=== PATIENT | male | born 1955 ===

== ENCOUNTER 2016-08-10 15:37 | Inpatient (IN) ==
[2016-08-10] MEDS ORDERED: LORazepam 2 MG/1 ML VIAL IV PRN ×2 (15:44→17:54)
[2016-08-10] MEDS ORDERED: MAGNESIUM SULF RIDER 4 GM in PREMIX 1 EACH IV ONE (18:05)
--- NOTE | 2016-08-10 18:07 | Hospitalist History & Physical ---
Assessment and Plan (1) Delirium tremens Status: Acute Assessment and plan: The patient is admitted to intensive care unit for benzodiazepine sedation, supportive care, and close observation. We will also give Geodon to reduce agitation and promote cooperative behavior. The patient will be hydrated and we will replete potassium and magnesium. We will recheck electrolytes in the morning. Current Visit: Yes (2) Hypertension Status: Acute Current Visit: Yes Qualifiers: Hypertension type: essential hypertension Qualified Code(s): I10 - Essential (primary) hypertension History of Present Illness Chief complaint: Tremulousness and altered mental status History of present illness: Mr. Bobo is a 61 year old male with history of daily beer drinking. The patient was seen at [place] emergency room on the day prior to admission to the hospital due to weakness. The patient was found to be hyponatremic. The patient was tremulous at that time but did not wish to be hospitalized. The patient returned to [facility] with symptoms of delirium today and is now transferred to [place] emergency room for further treatment of delirium tremens. The patient has no fever, chills. The patient does not complain of chest pain or palpitations. The patient is awake and combative the patient will answer questions with short answers. The patient is moving all extremities well and does not appear to have blindness. The patient's symptoms of delirium are moderate, continuous, and worsening. The patient is now admitted for IV hydration and benzodiazepine sedation. Allergies Allergy/AdvReac Type Severity Reaction Status Date / Time No Known Allergies Allergy Verified 08/10/16 18:36 Medical,Surgical,& Family Hx - Medical History Cardio: History of: Hypertension - Family History Family History: Reports;: Family Diabetes, Family Hypertension - Social History Frequency of Alcohol Use: Frequently Marital Status: Single Lives With:: Parent Functional capacity: independent ambulation 12 point system: reviewed and no additional remarkable complaints except as stated Exam - Constitutional Exam: Constitutional System: Moderate distress. Moderate tremulousness. The patient is delirious but will interact with observer Head: Normocephalic, atraumatic. Ears, Nose and Throat System: No evidence of Otitis or Mastoiditis. No epistaxis or discharge Eyes System: Pupils equal, round, and reactive. Extraocular muscles intact. Neck: Supple, without adenopathy, No jugular venous distention. No thyromegaly , neck mass, or prior surgery apparent. Respiratory System: Chest clear to auscultation. Cardiovascular System: Heart with regular tachycardic rate and rhythm. No murmur. GI System: Abdomen soft, nontender. Normo active bowel sounds present. Musculoskeletal System: limbs with no pedal edema. Full distal pulses. Neurological System: No discernable sensory deficit. No aphasia Psychiatric System: The patient is delirious Results - Labs Lab Results: I have reviewed the past 24 hour labs Labs: Laboratory obtained at [facility] includes sodium 121 potassium 3.3 chloride 81 CO2 of 25 BUN 14 creatinine 1.2
[2016-08-10] MEDS: chlordiazePOXIDE 25 MG CAPSULE PO SCH ×3 (19:28→20:44)
[2016-08-10] MEDS: SODIUM CHLORIDE 0.9% 1,000 ML IV SCH (19:29)
[2016-08-10] MEDS: ZIPRASIDONE 20 MG/1 ML VIAL IM PRN (19:30)
[2016-08-10] MEDS: THIAMINE INJ 100 MG, FOLIC ACID INJ 1 MG, MULTIVITAMIN INJ 10 ML in SODIUM CHLORIDE 0.9... IV SCH (20:45)
[2016-08-11] MEDS: chlordiazePOXIDE 25 MG CAPSULE PO SCH ×6 (00:26→19:59)
[2016-08-11] MEDS: ZIPRASIDONE 20 MG/1 ML VIAL IM PRN ×2 (01:57→22:43)
[2016-08-11 05:33] LABS: Basophils # 0.1 10*3/uL (0.0-0.2); Basophils % 0.9 % (0.0-0.8); Eosinophils # 0.2 10*3/uL (0.0-0.87); Hematocrit 37.3 VOL% (42.0-52.0); Hemoglobin 13.1 GM/DL (14.0-18.0); Immature Granulocytes % 0.5 %; Immature Granulocytes Absolute 0.04 #; Lymphocytes % 12.6 % (21.2-54.2); Mean Corpuscular HGB Conc 35.1 GM/DL (32-36); Mean Corpuscular Hemoglobin 31 PG (27-34); Mean Corpuscular Volume 87.6 FL (87-102); Mean Platelet Volume 9.6 FL (9.6-12.0); Monocytes # 1.5 10*3/uL (0.11-0.8); Monocytes % 19.3 % (1.7-12.7); Neutrophils # 5.1 10*3/uL (1.4-7.4); Neutrophils % 64.7 % (38.7-73.9); Platelet Count 119 T/CUMM (130-400); Red Blood Count 4.26 MC/CUMM (3.8-5.5); Red Cell Distribution Width 14.3 % (9.3-17.3); White Blood Count 7.9 T/CUMM (4-12)
[2016-08-11 05:44] LABS: INR 1.1; PT Patient Result 11.6 SECS; Partial Thromboplastin Time 27.1 SECS (0-40)
[2016-08-11 06:04] LABS: Band Neutrophils 1 % (0-10); Eosinophils 1 % (0-10); Lymphocytes 8 % (20-55); Segmented Neutrophils 73 % (50-85); Total Cells Counted 100
[2016-08-11 06:05] LABS: Burr Cells Slight; Hypochromasia 1+; Platelet Estimate Decreased
[2016-08-11 06:06] LABS: Ovalocytes Few
[2016-08-11 06:14] LABS: Troponin I Only 0.018 NG/ML (0.00-0.045)
[2016-08-11 06:15] LABS: Lactic Acid 1.1 MMOL/L (0.4-2.0)
[2016-08-11 06:28] LABS: Folate > 24.0 NG/ML (5.4-24.0); Vitamin B12 773 PG/ML (211-911)
[2016-08-11 06:45] LABS: Albumin 3.2 G/DL (3.4-5.0); Bilirubin,Total 1.3 MG/DL (0.2-1.0); Calcium 8.2 MG/DL (8.5-10.1); Osmolality,Calculated 271.8 MOS/KG (273-304); Potassium 3.7 MMOL/L (3.5-5.1); Total Protein 7.2 G/DL (6.4-8.3)
[2016-08-11] MEDS: SODIUM CHLORIDE 0.9% 1,000 ML IV SCH (08:00)
[2016-08-11] MEDS: LISINOPRIL 10 MG TABLET PO SCH (11:12)
--- NOTE | 2016-08-11 12:59 | Hospitalist Progress Note ---
Assessment and Plan (1) Delirium tremens Status: Acute Assessment and plan: The patient is admitted to intensive care unit for benzodiazepine sedation, supportive care, and close observation. The patient has improved and is now ready for transfer to the floor and continue oral benzodiazepine sedation. I anticipate discharge home tomorrow on the following day. Current Visit: Yes (2) Hypertension Status: Acute Current Visit: Yes Qualifiers: Hypertension type: essential hypertension Qualified Code(s): I10 - Essential (primary) hypertension Hospitalist: Subjective Interval history: The patient is now awake and alert. The patient does not complain of shortness of breath or chest pain. His conversation is rational. 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 The patient quit drinking his daily beer several days ago and had alcohol withdrawal delirium tremens. This is now improved on benzodiazepine sedation and the patient is hemodynamically stable and ready for transfer to the floor. Exam - Constitutional Vitals: Period Temp Pulse Resp BP Sys/Snow Pulse Ox Last 24 Hr 59 F-98.9 F 81-104 18-29 114-175/75-125 94-99 Exam: Constitutional System: No distress. Minimal tremulousness. The patient is alert and oriented Head: Normocephalic, atraumatic. Ears, Nose and Throat System: No evidence of Otitis or Mastoiditis. No epistaxis or discharge Eyes System: Pupils equal, round, and reactive. Extraocular muscles intact. Neck: Supple, without adenopathy, No jugular venous distention. No thyromegaly , neck mass, or prior surgery apparent. Respiratory System: Chest clear to auscultation. Cardiovascular System: Heart with regular tachycardic rate and rhythm. No murmur. GI System: Abdomen soft, nontender. Normo active bowel sounds present. Musculoskeletal System: limbs with no pedal edema. Full distal pulses. Neurological System: No discernable sensory deficit. No aphasia Psychiatric System: The patient is oriented in 4 respects Results - Labs CBC & BMP: 08/11/16 04:33 08/11/16 04:33 Lab Results: I have reviewed the past 24 hour labs
[2016-08-11] MEDS: THIAMINE INJ 100 MG, FOLIC ACID INJ 1 MG, MULTIVITAMIN INJ 10 ML in SODIUM CHLORIDE 0.9... IV SCH (19:59)
[2016-08-11] MEDS: DORZOLAMIDE/TIMOLOL OPH SOLN 10 ML BOTTLE RIGHT EYE SCH (20:31)
[2016-08-11] MEDS: ATROPINE 1 % OPH SOLN 5 ML BOTTLE RIGHT EYE SCH (20:31)
[2016-08-12] MEDS: chlordiazePOXIDE 25 MG CAPSULE PO SCH ×6 (00:21→22:47)
[2016-08-12 05:58] LABS: Magnesium 1.9 MG/DL (1.8-2.4); Osmolality,Calculated 274.5 MOS/KG (273-304); Potassium 3.4 MMOL/L (3.5-5.1)
[2016-08-12] MEDS: SODIUM CHLORIDE 0.9% 1,000 ML IV SCH ×3 (06:25→19:19)
[2016-08-12] MEDS: hydroCHLOROthiazide 12.5 MG CAPSULE PO SCH (08:59)
[2016-08-12] MEDS: LISINOPRIL 10 MG TABLET PO SCH (08:59)
[2016-08-12] MEDS: ATROPINE 1 % OPH SOLN 5 ML BOTTLE RIGHT EYE SCH ×2 (09:01→22:03)
[2016-08-12] MEDS: DORZOLAMIDE/TIMOLOL OPH SOLN 10 ML BOTTLE RIGHT EYE SCH ×2 (09:01→22:01)
--- NOTE | 2016-08-12 15:28 | Hospitalist Progress Note ---
Assessment and Plan (1) Delirium tremens Status: Acute Assessment and plan: Will space out librium Possible discharge soon Current Visit: Yes (2) Hypertension Status: Acute Assessment and plan: Continue home meds Current Visit: Yes Qualifiers: Hypertension type: essential hypertension Qualified Code(s): I10 - Essential (primary) hypertension Hospitalist: Subjective Interval history: Overnight, patient with some confusion. Today patient is oriented but reports a tremor. Exam - Constitutional Vitals: Period Temp Pulse Resp BP Sys/Snow Pulse Ox Last 24 Hr 98 F-99.9 F 84-96 20-24 124-158/63-93 94-99 General appearance: over weight - Head Head exam: Present: normocephalic, atraumatic - Eye Eye exam: Present: EOMI Pupils: Present: DERREK - ENT ENT exam: Present: normal exam - Neck Neck exam: Present: normal inspection - Respiratory Respiratory exam: Present: clear to auscultation bilaterally. Absent: wheezes - Cardiovascular Cardiovascular exam: Present: regular rate and rhythm - GI/Abdominal GI/Abdominal exam: Present: normal bowel sounds, soft. Absent: tenderness, rebound - Extremities Exam Extremities exam: Present: normal inspection - Back Exam Back exam: Present: normal inspection - Neurological Exam Neurological exam: Present: alert, oriented X3 - Psychiatric Psychiatric exam: Present: normal affect, normal mood - Skin Skin exam: Present: warm, intact Results - Labs CBC & BMP: 08/11/16 04:33 08/12/16 04:46
[2016-08-12] MEDS: THIAMINE INJ 100 MG, FOLIC ACID INJ 1 MG, MULTIVITAMIN INJ 10 ML in SODIUM CHLORIDE 0.9... IV SCH (19:20)
[2016-08-12] MEDS: ZIPRASIDONE 20 MG/1 ML VIAL IM PRN (23:06)
[2016-08-13] MEDS: ATROPINE 1 % OPH SOLN 5 ML BOTTLE RIGHT EYE SCH ×2 (07:59→20:22)
[2016-08-13] MEDS: chlordiazePOXIDE 25 MG CAPSULE PO SCH ×2 (07:59→15:37)
[2016-08-13] MEDS: hydroCHLOROthiazide 12.5 MG CAPSULE PO SCH (07:59)
[2016-08-13] MEDS: LISINOPRIL 10 MG TABLET PO SCH (07:59)
[2016-08-13] MEDS: DORZOLAMIDE/TIMOLOL OPH SOLN 10 ML BOTTLE RIGHT EYE SCH ×2 (07:59→20:22)
--- NOTE | 2016-08-13 14:16 | Hospitalist Progress Note ---
Assessment and Plan (1) Delirium tremens Status: Acute Assessment and plan: Will space out librium Possible discharge soon Current Visit: Yes (2) Hypertension Status: Acute Assessment and plan: Continue home meds Current Visit: Yes Qualifiers: Hypertension type: essential hypertension Qualified Code(s): I10 - Essential (primary) hypertension Hospitalist: Subjective Interval history: Still with some intermittent confusion. His family called and believe that he needs rehab therapy before going home. Exam - Constitutional Vitals: Period Temp Pulse Resp BP Sys/Snow Pulse Ox Last 24 Hr 98.0 F-98.9 F 82-100 16-20 136-151/59-97 92-98 General appearance: over weight - Head Head exam: Present: normocephalic, atraumatic - Eye Eye exam: Present: EOMI Pupils: Present: DERREK - ENT ENT exam: Present: normal exam - Neck Neck exam: Present: normal inspection - Respiratory Respiratory exam: Present: clear to auscultation bilaterally. Absent: wheezes - Cardiovascular Cardiovascular exam: Present: regular rate and rhythm - GI/Abdominal GI/Abdominal exam: Present: normal bowel sounds, soft. Absent: tenderness, rebound - Extremities Exam Extremities exam: Present: normal inspection - Back Exam Back exam: Present: normal inspection - Neurological Exam Neurological exam: Present: alert, oriented X3 - Psychiatric Psychiatric exam: Present: normal affect, normal mood - Skin Skin exam: Present: warm, intact Results - Labs CBC & BMP: 08/11/16 04:33 08/12/16 04:46
[2016-08-13] MEDS: SODIUM CHLORIDE 0.9% 1,000 ML IV SCH (18:24)
[2016-08-13] MEDS: THIAMINE INJ 100 MG, FOLIC ACID INJ 1 MG, MULTIVITAMIN INJ 10 ML in SODIUM CHLORIDE 0.9... IV SCH (20:21)
[2016-08-14] MEDS: chlordiazePOXIDE 25 MG CAPSULE PO SCH ×3 (00:53→13:01)
[2016-08-14] MEDS: hydroCHLOROthiazide 12.5 MG CAPSULE PO SCH (08:08)
[2016-08-14] MEDS: LISINOPRIL 10 MG TABLET PO SCH (08:08)
[2016-08-14] MEDS: DORZOLAMIDE/TIMOLOL OPH SOLN 10 ML BOTTLE RIGHT EYE SCH ×2 (08:09→20:56)
[2016-08-14] MEDS: ATROPINE 1 % OPH SOLN 5 ML BOTTLE RIGHT EYE SCH ×2 (08:09→20:53)
[2016-08-14] MEDS: SODIUM CHLORIDE 0.9% 1,000 ML IV SCH ×2 (10:22→14:53)
--- NOTE | 2016-08-14 10:37 | Hospitalist Progress Note ---
Assessment and Plan (1) Delirium tremens Status: Acute Assessment and plan: Will space out librium Possible discharge soon Current Visit: Yes (2) Hypertension Status: Acute Assessment and plan: Continue home meds Current Visit: Yes Qualifiers: Hypertension type: essential hypertension Qualified Code(s): I10 - Essential (primary) hypertension Hospitalist: Subjective Interval history: No acute events overnight. Exam - Constitutional Vitals: Period Temp Pulse Resp BP Sys/Snow Pulse Ox Last 24 Hr 98.2 F-98.8 F 75-134 20-21 114-136/65-87 92-96 General appearance: over weight - Head Head exam: Present: normocephalic, atraumatic - Eye Eye exam: Present: EOMI Pupils: Present: DERREK - ENT ENT exam: Present: normal exam - Neck Neck exam: Present: normal inspection - Respiratory Respiratory exam: Present: clear to auscultation bilaterally - Cardiovascular Cardiovascular exam: Present: regular rate and rhythm - GI/Abdominal GI/Abdominal exam: Present: normal bowel sounds, soft. Absent: tenderness, rebound - Extremities Exam Extremities exam: Present: normal inspection - Back Exam Back exam: Present: normal inspection - Neurological Exam Neurological exam: Present: alert, oriented X3 - Psychiatric Psychiatric exam: Present: normal affect, normal mood - Skin Skin exam: Present: warm, intact Results - Labs CBC & BMP: 08/11/16 04:33 08/12/16 04:46
[2016-08-14] MEDS: THIAMINE INJ 100 MG, FOLIC ACID INJ 1 MG, MULTIVITAMIN INJ 10 ML in SODIUM CHLORIDE 0.9... IV SCH (20:52)
[2016-08-15] MEDS: chlordiazePOXIDE 25 MG CAPSULE PO SCH ×3 (00:14→23:20)
[2016-08-15] MEDS: SODIUM CHLORIDE 0.9% 1,000 ML IV SCH ×3 (06:32→14:41)
[2016-08-15] MEDS: hydroCHLOROthiazide 12.5 MG CAPSULE PO SCH (08:54)
[2016-08-15] MEDS: LISINOPRIL 10 MG TABLET PO SCH (08:55)
[2016-08-15] MEDS: DORZOLAMIDE/TIMOLOL OPH SOLN 10 ML BOTTLE RIGHT EYE SCH ×2 (08:55→21:19)
[2016-08-15] MEDS: ATROPINE 1 % OPH SOLN 5 ML BOTTLE RIGHT EYE SCH ×2 (08:55→21:18)
--- NOTE | 2016-08-15 13:01 | Hospitalist Progress Note ---
Assessment and Plan (1) Delirium tremens Status: Acute Assessment and plan: Will continue librium Possible discharge tomorrow Current Visit: Yes (2) Hypertension Status: Acute Assessment and plan: Continue home meds Current Visit: Yes Qualifiers: Hypertension type: essential hypertension Qualified Code(s): I10 - Essential (primary) hypertension Hospitalist: Subjective Interval history: No acute events overnight. Patient getting around better now. Appears to be less confused today. Will plan for discharge tomorrow with referral to [facility]. Exam - Constitutional Vitals: Period Temp Pulse Resp BP Sys/Snow Pulse Ox Last 24 Hr 97.3 F-98.6 F 63-83 18-21 83-157/55-95 94-96 General appearance: over weight - Head Head exam: Present: normocephalic, atraumatic - Eye Eye exam: Present: EOMI Pupils: Present: DERREK - ENT ENT exam: Present: normal exam - Neck Neck exam: Present: normal inspection - Respiratory Respiratory exam: Present: clear to auscultation bilaterally. Absent: rhonchi, wheezes - Cardiovascular Cardiovascular exam: Present: regular rate and rhythm - GI/Abdominal GI/Abdominal exam: Present: normal bowel sounds, soft. Absent: tenderness, rebound - Extremities Exam Extremities exam: Present: normal inspection - Back Exam Back exam: Present: normal inspection - Neurological Exam Neurological exam: Present: alert, oriented X3 - Psychiatric Psychiatric exam: Present: normal affect, normal mood - Skin Skin exam: Present: warm, intact Results - Labs CBC & BMP: 08/11/16 04:33 08/12/16 04:46
[2016-08-15] MEDS: THIAMINE INJ 100 MG, FOLIC ACID INJ 1 MG, MULTIVITAMIN INJ 10 ML in SODIUM CHLORIDE 0.9... IV SCH (21:19)
[2016-08-16] MEDS: SODIUM CHLORIDE 0.9% 1,000 ML IV SCH (07:37)
[2016-08-16 08:14] VITALS: BP 143/86
[2016-08-16] MEDS: ATROPINE 1 % OPH SOLN 5 ML BOTTLE RIGHT EYE SCH (08:47)
[2016-08-16] MEDS: DORZOLAMIDE/TIMOLOL OPH SOLN 10 ML BOTTLE RIGHT EYE SCH (08:47)
[2016-08-16] MEDS: hydroCHLOROthiazide 12.5 MG CAPSULE PO SCH (08:47)
[2016-08-16] MEDS: LISINOPRIL 10 MG TABLET PO SCH (08:47)
--- NOTE | 2016-08-16 10:02 | Discharge Summary ---
Hospital Course - Hospital Course Hospital Course: Mr. Bobo is a 61 year old male with history of daily beer drinking. The patient was seen at [place] emergency room on the day prior to admission to the hospital due to weakness. The patient was found to be hyponatremic. The patient was tremulous at that time but did not wish to be hospitalized. The patient returned to [facility] with symptoms of delirium and is was transferred to [place] emergency room for further treatment of delirium tremens. The patient was awake and combative the patient will answer questions with short answers. The patient's symptoms of delirium are moderate, continuous , and worsening. The patient was admitted to the hospitalist service for IV hydration and benzodiazepine sedation. He was initially monitored in the ICU. The following day he was transferred to the general medicine floor. He was tapered on benzodiazepines. His hospital course was complicated by intermittent confusion due to alcohol withdrawal. He is now alert and oriented, able to walk around the [place] with the assistance of a cane. He has now reached maximal benefit of inpatient stay and will be discharged home. - Time spent with patient Time with patient DS: Less than 30 minutes Diagnosis - Discharge Diagnosis (1) Delirium tremens Status: Resolved (2) Hypertension Status: Chronic Discharge Plan - Discharge Data Disposition: Disch To Home/Self Care Condition at Discharge: Stable Discharge Diet: advance to your usual diet Activity: increase activity as tolerated Hygiene: no restrictions Weight Bearing at Discharge: weight bear as tolerated Driving: not until seen by doctor Contact your physician if you experience:: fever over 101, Shortness of breath - Discharge Medications New Folic Acid Tab 1 mg PO DAILY #30 tablet Thiamine Tab [Vitamin B1 Tab] 100 mg PO DAILY #30 tablet chlordiazePOXIDE [Librium] 25 mg PO Q12H #15 capsule Continue Atropine 1 % Oph Soln [Isopto Atropine 1%] 1 drop RIGHT EYE BID Lisinopril 10 mg PO DAILY Dorzolamide/Timolol Oph Soln [Cosopt] 1 drop RIGHT EYE BID hydroCHLOROthiazide [Hydrochlorothiazide] 12.5 mg PO DAILY - Follow Up or Referral - Forms/Instructions Exam - Constitutional Vitals: Period Temp Pulse Resp BP Sys/Snow Pulse Ox Last 24 Hr 96.9 F-98.5 F 65-83 18-65 83-143/55-86 95-98 General appearance: over weight - Head Head exam: Present: normocephalic, atraumatic - Eye Eye exam: Present: EOMI Pupils: Present: DERREK - ENT ENT exam: Present: normal exam - Neck Neck exam: Present: normal inspection - Respiratory Respiratory exam: Present: clear to auscultation bilaterally - Cardiovascular Cardiovascular exam: Present: regular rate and rhythm - GI/Abdominal GI/Abdominal exam: Present: normal bowel sounds, soft. Absent: tenderness, rebound - Extremities Exam Extremities exam: Present: normal inspection - Back Exam Back exam: Present: normal inspection - Neurological Exam Neurological exam: Present: alert, oriented X3 - Psychiatric Psychiatric exam: Present: normal affect, normal mood - Skin Skin exam: Present: warm, intact Discharge Results Labs on day of discharge: Labs from last 24 hours 08/16/16 08/15/16 08/15/16 07:40 21:15 16:06 POC Glucose 90 122 H 99 08/15/16 11:49 POC Glucose 99 DS: Provider Date of admission: 08/10/16 18:04 Primary care physician: Emory Hernández MD Attending physician on admission: Prateek Ladd MD Consults: 08/11/16 20:46 Consult to Case Mgmt/Social Srvs [CONS] Routine Reason for Case Mgmt/Social Srvs: Discharge Planning Consult Comment: Pt has no clothes to wear home. States he has no one to bring anything. 08/12/16 13:32 Consult to Case Mgmt/Social Srvs [CONS] Routine Reason for Case Mgmt/Social Srvs: Equipment Consult Comment: Cane 08/14/16 10:44 Consult to Physical Therapy [CONS] Routine Reason for Physical Therapy: Evaluate and Treat Consult Comment: ?swing bed 08/14/16 10:45 Consult to Case Mgmt/Social Srvs [CONS] Routine Reason for Case Mgmt/Social Srvs: Discharge Planning Consult Comment: ?swing bed Discharging clinician: Dario Le MD
== END 2016-08-16 10:57 | disposition home or self-care (01) | DRG 897 ==
LOC: SUATTDRO 18:04 → N.ICU 18:04 → N.4E 08-11 13:08
PROVIDERS: ADMIT Internal Medicine; ATTEND Internal Medicine

== ENCOUNTER 2017-07-04 13:41 | Observation (INO) ==
[2017-07-04] MEDS ORDERED: BISACODYL 5 MG TABLET PO PRN (15:09)
[2017-07-04] MEDS ORDERED: ONDANSETRON 4 MG/2 ML VIAL IV PRN (15:09)
[2017-07-04] MEDS ORDERED: ZALEPLON 5 MG CAPSULE PO PRN (15:09)
[2017-07-04] MEDS ORDERED: MAGNESIUM SULF RIDER 2 GM in PREMIX 1 EACH IV PRN ×2 (15:09→16:15)
[2017-07-04] MEDS ORDERED: MAGNESIUM SULF RIDER 4 GM in PREMIX 1 EACH IV PRN ×2 (15:09→16:15)
[2017-07-04] MEDS ORDERED: POTASSIUM CHLORIDE 20 MEQ TABLET PO PRN (15:09)
[2017-07-04] MEDS ORDERED: diphenhydrAMINE CAP 25 MG CAPSULE PO PRN (15:09)
[2017-07-04] MEDS ORDERED: ACETAMINOPHEN 325 MG TABLET PO PRN (15:09)
[2017-07-04] MEDS ORDERED: ENOXAPARIN 40 MG/0.4 ML SYRINGE SUBCUT SCH (15:30)
[2017-07-04] MEDS ORDERED: LORATADINE 10 MG TABLET PO PRN (16:29)
[2017-07-04] MEDS ORDERED: NAPROXEN 500 MG TABLET PO PRN (16:29)
[2017-07-04 17:30] LABS: Basophils # 0.1 10*3/uL (0.0-0.2); Basophils % 1.1 % (0.0-0.8); Eosinophils # 0.2 10*3/uL (0.0-0.87); Eosinophils % 2.5 % (0.00-10.9); Hematocrit 45.1 VOL% (42.0-52.0); Hemoglobin 15.4 GM/DL (14.0-18.0); Immature Granulocytes % 0.3 %; Immature Granulocytes Absolute 0.03 #; Lymphocytes # 2.2 10*3/uL (1.4-4.0); Lymphocytes % 24.1 % (21.2-54.2); Mean Corpuscular HGB Conc 34.1 GM/DL (32-36); Mean Corpuscular Hemoglobin 33 PG (27-34); Mean Corpuscular Volume 95.1 FL (87-102); Mean Platelet Volume 9.8 FL (9.6-12.0); Monocytes # 0.9 10*3/uL (0.11-0.8); Neutrophils # 5.6 10*3/uL (1.4-7.4); Platelet Count 210 T/CUMM (130-400); Red Blood Count 4.74 MC/CUMM (3.8-5.5); Red Cell Distribution Width 13.6 % (9.3-17.3); White Blood Count 9.1 T/CUMM (4-12)
[2017-07-04] MEDS: INSULIN REGULAR 100 UNIT/ML SUBCUT SCH ×2 (17:30→21:43)
[2017-07-04 17:47] LABS: Albumin 3.3 G/DL (3.4-5.0); Bilirubin,Total 0.8 MG/DL (0.2-1.0); Calcium 8.4 MG/DL (8.5-10.1); Osmolality,Calculated 280.4 MOS/KG (273-304); Potassium 4.2 MMOL/L (3.5-5.1); Total Protein 7.5 G/DL (6.4-8.3)
[2017-07-04 17:50] LABS: Albumin 3.3 G/DL (3.4-5.0); Bilirubin,Total 0.9 MG/DL (0.2-1.0); Calcium 8.5 MG/DL (8.5-10.1); Osmolality,Calculated 278.5 MOS/KG (273-304); Potassium 4.2 MMOL/L (3.5-5.1); Total Protein 7.6 G/DL (6.4-8.3)
[2017-07-04 17:51] LABS: Troponin I Only < 0.015 NG/ML (0.00-0.045)
[2017-07-04] MEDS: METOPROLOL TARTRATE 25 MG TABLET PO SCH ×2 (17:59→21:25)
[2017-07-04] MEDS ORDERED: FLUTICASONE 50 MCG NASAL SPRAY 16 GM BOTTLE BOTH NARES SCH (21:00)
[2017-07-04] MEDS: APIXABAN 5 MG TABLET PO SCH (21:25)
[2017-07-04 22:14] LABS: Troponin I Only < 0.015 NG/ML (0.00-0.045)
[2017-07-05 05:12] LABS: Basophils # 0.1 10*3/uL (0.0-0.2); Eosinophils # 0.3 10*3/uL (0.0-0.87); Eosinophils % 4.3 % (0.00-10.9); Hematocrit 41.3 VOL% (42.0-52.0); Hemoglobin 14.3 GM/DL (14.0-18.0); Immature Granulocytes % 0.3 %; Immature Granulocytes Absolute 0.02 #; Lymphocytes % 25.3 % (21.2-54.2); Mean Corpuscular HGB Conc 34.6 GM/DL (32-36); Mean Corpuscular Hemoglobin 33 PG (27-34); Mean Corpuscular Volume 94.1 FL (87-102); Mean Platelet Volume 9.8 FL (9.6-12.0); Monocytes # 0.8 10*3/uL (0.11-0.8); Monocytes % 10.6 % (1.7-12.7); Neutrophils # 4.5 10*3/uL (1.4-7.4); Neutrophils % 58.5 % (38.7-73.9); Platelet Count 185 T/CUMM (130-400); Red Blood Count 4.39 MC/CUMM (3.8-5.5); Red Cell Distribution Width 13.3 % (9.3-17.3); White Blood Count 7.7 T/CUMM (4-12)
[2017-07-05 05:58] LABS: Calcium 8.3 MG/DL (8.5-10.1); Osmolality,Calculated 273.8 MOS/KG (273-304); Potassium 4.2 MMOL/L (3.5-5.1); Risk Ratio 2.82; VLDL CHOLESTEROL 17.4 MG/DL
[2017-07-05 08:08] VITALS: BP 133/78
[2017-07-05] MEDS ORDERED: POTASSIUM CHLORIDE RIDER 10 MEQ in PREMIX 1 EACH IV PRN (08:19)
[2017-07-05] MEDS ORDERED: MAGNESIUM SULF RIDER 2 GM in PREMIX 1 EACH IV PRN (08:19)
[2017-07-05] MEDS ORDERED: PANTOPRAZOLE 40 MG TABLET PO SCH (09:00)
[2017-07-05] MEDS ORDERED: METOPROLOL TARTRATE 50 MG TABLET PO SCH (10:00)
[2017-07-05] MEDS ORDERED: PROPOFOL 200 MG/20 ML VIAL IV ONE (10:22)
[2017-07-05] MEDS ORDERED: ETOMIDATE 40 MG/20 ML VIAL IV ONE (10:22)
[2017-07-05] MEDS: INSULIN REGULAR 100 UNIT/ML SUBCUT SCH ×2 (11:30→12:31)
[2017-07-05] MEDS: METOPROLOL TARTRATE 25 MG TABLET PO SCH (11:42)
[2017-07-05] MEDS: APIXABAN 5 MG TABLET PO SCH (12:30)
== END 2017-07-05 12:05 | disposition home or self-care (01) ==
LOC: EDUNIT# → EDBD → N.ED 13:41 → N.EDINP 13:41 → N.TELES 16:13
PROVIDERS: ADMIT Internal Medicine Cardiovascular Disease; ATTEND Internal Medicine Cardiovascular Disease